=== PATIENT | female | born 1945 | race Caucasian/White ===

== ENCOUNTER → 2020-08-09 | Outpatient (CLI) | payer MEDICARE, OTHER ==
[~2020-08-09] MED LIST: COREG6.25 MG PO; DITROPAN 5 MG TA5 MG PO; DOCUSATE SODIU250 MG PO; ESTRADIOL1 MG PO; HYDROCODONE-AC1 EACH PO; IBUPROFEN600 MG PO; LEVOTHYROXINE88 MC1 PO; POTASSIUM99 M1 PO; ULTRAM50 MG PO; VITAMIN D350 MC3 PO
[2020-08-09 11:26] LABS: HEMOGLOBIN 13.1 gm/dl (12.3-15.3); RED BLOOD COUNT 4.42 M/UL (4.00-5.10); WHITE BLOOD COUNT 7.6 K/UL (4.5-11.0)
== END ==
LOC: OPSV2 10:00
PROVIDERS: Obstetrics & Gynecology
DX: Z01.818 Encounter for other preprocedural examination (principal); R39.15 Urgency of urination; Z20.822 Contact with and (suspected) exposure to COVID-19
CPT/HCPCS: 36415; 71046; 81001; 85025; 93005; U0003

== ENCOUNTER 2020-08-12 06:50 | Day surgery (SDC) | payer MEDICARE, OTHER ==
[~2020-08-12] VITALS: Ht 160 cm; Wt 50.8 kg
[~2020-08-12 06:50] MED LIST changes: -DITROPAN 5 MG TA5 MG PO; -DOCUSATE SODIU250 MG PO; -HYDROCODONE-AC1 EACH PO; -IBUPROFEN600 MG PO
[2020-08-12] MEDS ORDERED: IBUPROFEN600 MG PO (08:41)
[2020-08-12] MEDS ORDERED: DITROPAN 5 MG TA5 MG PO (08:41)
[2020-08-12] MEDS ORDERED: HYDROCODONE-AC1 EACH PO (08:41)
[2020-08-12] MEDS ORDERED: DOCUSATE SODIU250 MG PO (08:41)
== END 2020-08-13 11:35 | disposition home or self-care (01) ==
LOC: OR 06:50 → OB 16:40 → OR 08-13 11:35
DX: N81.10 Cystocele, unspecified (principal); K66.0 Peritoneal adhesions (postprocedural) (postinfection); I10 Essential (primary) hypertension; E03.9 Hypothyroidism, unspecified; Z79.891 Long term (current) use of opiate analgesic; Z79.899 Other long term (current) drug therapy
CPT/HCPCS: C1769; J0690; J1100; J1170; J2001; J2270; J2405; J2704; J2710; J3010; J7050; J7120